=== PATIENT | female | born 1950 ===

== ENCOUNTER 2017-04-16 08:17 | Emergency (ER) | payer BC, OTHER ==
[~2017-04-16] VITALS: Ht 162.6 cm; Wt 80.0 kg
[2017-04-16 08:23] VITALS: BP 96/65; PULSE 72; RESP 16; TEMP 97.7; O2SAT 100
[2017-04-16] MEDS ORDERED: METF500T PO (08:30)
[2017-04-16] MEDS ORDERED: ATOR40TA16 PO (08:30)
--- NOTE | 2017-04-16 08:35 | PD ---
HPI Chief Complaint: Cardiac Complaint Time Seen by Provider: 08:31 Travel History International Travel<30 days: No Contact w/Intl Traveler<30days: No Traveled to known affect area: No History of Present Illness HPI This 66-year-old female says that she started feeling lightheaded around 7 AM this morning. She had palpitations and felt a little bit of indigestion. She has not had symptoms like this before. She checked her heart rate and was quite fast. She has no history of heart disease. She is on metformin and atorvastatin. Her father of a heart attack as did her younger brother. She went for a stress test about 2 years ago and it was normal. She does not smoke, has occasional alcohol. She does not get exertional chest pain or shortness of breath. PFSH Past Medical History Hx Anticoagulant Therapy: No Cardiovascular Problems: Yes (CHOL) High Cholesterol: Yes Diabetes: Yes Patient Takes Glucophage: Yes Diminished Hearing: No Tetanus Vaccination: Unknown ?: Not Past Surgical History Surgical History: No Previous Surgery Social History Alcohol Use: Yes (SOC) Tobacco Use: No Substance Use: No Allergies-Medications (Allergen,Severity, Reaction): Coded Allergies: No Known Allergies (Unverified , 04/16/17) Reported Meds & Prescriptions Reported Meds & Active Scripts Active Reported Atorvastatin (Atorvastatin Calcium) 40 Mg Tab 40 Mg PO HS Metformin (Metformin HCl) 500 Mg Tab 500 Mg PO BIDPC Review of Systems General / Constitutional: No: Fever, Chills Eyes: No: Diploplia, Blurred Vision HENT: Positive: Lightheadedness, No: Headaches Cardiovascular: Positive: Chest Pain or Discomfort, Tachycardia Respiratory: No: Shortness of Breath, Wheezing Gastrointestinal: Positive: Nausea Genitourinary: No: Urgency, Frequency Musculoskeletal: No: Myalgias, Arthralgias Skin: No Rash, No Itching Neurologic: Positive: Dizziness Psychiatric: No: Depression Endocrine: No: Heat Intolerance, Cold Intolerance Hematologic/Lymphatic: No: Easy Bruising Physical Exam Narrative GENERAL: Well-developed female SKIN: Focused skin assessment warm/dry. HEAD: Atraumatic. Normocephalic. EYES: Pupils equal and round. No scleral icterus. No injection or drainage. ENT: No nasal bleeding or discharge. Mucous membranes pink and moist. NECK: Trachea midline. No JVD. CARDIOVASCULAR: Rapid Regular rate and rhythm. No murmur appreciated. RESPIRATORY: No accessory muscle use. Clear to auscultation. Breath sounds equal bilaterally. GASTROINTESTINAL: Abdomen soft, non-tender, nondistended. Hepatic and splenic margins not palpable. MUSCULOSKELETAL: No obvious deformities. No clubbing. No cyanosis. No edema. NEUROLOGICAL: Awake and alert. No obvious cranial nerve deficits. Motor grossly within normal limits. Normal speech. PSYCHIATRIC: Appropriate mood and affect; insight and judgment normal. Data Data Last Documented VS Vital Signs Date Time Temp Pulse Resp B/P (MAP) Pulse Ox O2 Delivery O2 Flow Rate FiO2 04/16/17 08:48 78 16 110/67 (81) 95 Room Air 04/16/17 08:23 97.7 Orders Orders Complete Blood Count With Diff (04/16/17 08:29) Basic Metabolic Panel (Bmp) (04/16/17 08:29) Troponin I (04/16/17 08:29) Magnesium (Mg) (04/16/17 08:29) Thyroid Stimulating Hormone (04/16/17 08:29) Chest, Single Ap (04/16/17 08:29) Labs Laboratory Tests Test 04/16/17 08:30 White Blood Count 7.3 TH/MM3 Red Blood Count 4.84 MIL/MM3 Hemoglobin 14.5 GM/DL Hematocrit 43.5 % Mean Corpuscular Volume 89.8 FL Mean Corpuscular Hemoglobin 29.9 PG Mean Corpuscular Hemoglobin Concent 33.4 % Red Cell Distribution Width 12.2 % Platelet Count 240 TH/MM3 Mean Platelet Volume 9.8 FL Neutrophils (%) (Auto) 62.9 % Lymphocytes (%) (Auto) 22.8 % Monocytes (%) (Auto) 8.0 % Eosinophils (%) (Auto) 1.9 % Basophils (%) (Auto) 4.4 % Neutrophils # (Auto) 4.6 TH/MM3 Lymphocytes # (Auto) 1.7 TH/MM3 Monocytes # (Auto) 0.6 TH/MM3 Eosinophils # (Auto) 0.1 TH/MM3 Basophils # (Auto) 0.3 TH/MM3 CBC Comment DIFF FINAL Differential Comment Blood Urea Nitrogen 15 MG/DL Creatinine 0.91 MG/DL Random Glucose 205 MG/DL Calcium Level 9.1 MG/DL Magnesium Level 2.0 MG/DL Sodium Level 136 MEQ/L Potassium Level 3.7 MEQ/L Chloride Level 105 MEQ/L Carbon Dioxide Level 22.7 MEQ/L Anion Gap 8 MEQ/L Estimat Glomerular Filtration Rate 62 ML/MIN Troponin I LESS THAN 0.02 NG/ML Thyroid Stimulating Hormone 3rd Gen 1.800 uIU/ML MDM Medical Decision Making Medical Screen Exam Complete: Yes Emergency Medical Condition: Yes Medical Record Reviewed: Yes Differential Diagnosis Differential includes SVT, atrial fibrillation, V. 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 Valsalva maneuver was performed and the patient converted to a sinus rhythm. Hemoglobin is 14.5 and white count of 7.3. Blood sugar is 205. Troponin is less than 0.02. TSH is normal. Chest x-ray negative. Diagnosis Primary Impression: Supraventricular tachycardia Departure Forms: Tests/Procedures, Work Release Enter return to work date: Apr 17, 2017 Additional Instructions: Return as needed Disposition: 01 DISCHARGE HOME Condition: Stable Rolly Austin MD Apr 16, 2017 08:35
[2017-04-16 08:39] LABS: AUTOMATED NEUTROPHIL # 4.6 TH/MM3 (1.8-7.7); BASOPHIL # 0.3 TH/MM3 (0-0.2); BASOPHIL % 4.4 % (0.0-2.0); EOSINOPHIL # 0.1 TH/MM3 (0-0.4); EOSINOPHIL % 1.9 % (0.0-4.0); HEMATOCRIT 43.5 % (35.0-46.0); HEMOGLOBIN 14.5 GM/DL (11.6-15.3); LYMPH % 22.8 % (9.0-44.0); LYMPHOCYTE # 1.7 TH/MM3 (1.0-4.8); MEAN CELL VOLUME 89.8 FL (80.0-100.0); MEAN CORPUSCULAR HEMOGLOBIN 29.9 PG (27.0-34.0); MEAN CORPUSCULAR HGB CONC 33.4 % (32.0-36.0); MEAN PLATELET VOLUME 9.8 FL (7.0-11.0); MONOCYTE # 0.6 TH/MM3 (0-0.9); NEUT % 62.9 % (16.0-70.0); PLATELET COUNT 240 TH/MM3 (150-450); RED BLOOD COUNT 4.84 MIL/MM3 (4.00-5.30); RED CELL DISTRIBUTION WIDTH 12.2 % (11.6-17.2); WHITE BLOOD COUNT 7.3 TH/MM3 (4.0-11.0)
[2017-04-16 08:48] VITALS: BP 110/67; PULSE 78; RESP 16; O2SAT 95
[2017-04-16 08:52] LABS: CHLORIDE 105 MEQ/L (98-107); SODIUM (NA) 136 MEQ/L (136-145)
[2017-04-16 08:54] LABS: CALCIUM 9.1 MG/DL (8.5-10.1)
[2017-04-16 08:55] LABS: BICARBONATE 22.7 MEQ/L (21.0-32.0); BLOOD UREA NITROGEN 15 MG/DL (7-18); GLUCOSE,RANDOM 205 MG/DL (74-106)
[2017-04-16 08:58] LABS: CREATININE 0.91 MG/DL (0.50-1.00); GLOMERULAR FILTRATION RATE 62 ML/MIN (>89)
[2017-04-16 09:03] LABS: TROPONIN I LESS THAN 0.02 NG/ML (0.02-0.05)
[2017-04-16 09:46] VITALS: BP 109/67
--- NOTE | 2017-04-16 10:02 | RADRPT ---
EXAM DATE/TIME: 04/16/2017 08:51 [facility] COMPARISON: No previous studies available for comparison. INDICATIONS : Short of Breath MEDICAL HISTORY : Vertigo SURGICAL HISTORY : None. ENCOUNTER: Initial ACUITY: 1 day PAIN SCORE: 0/10 LOCATION: chest FINDINGS: A single view of the chest demonstrates the lungs to be symmetrically aerated without evidence of mas s, infiltrate or effusion. The cardiomediastinal contours are unremarkable. Osseous structures are intact. CONCLUSION: No acute disease. Cristino Rod MD FACR on April 16, 2017 at 10:00 Board Certified Radiologist. This report was verified electronically.
--- NOTE | 2017-04-16 21:59 | EKG ---
Date Performed: 04/16/2017 Time Performed: 08:22:44 PTAGE: 66 years EKG: Sinus rhythm WITH OCCASIONAL SUPRAVENTRICULAR PREMATURE COMPLEXES BORDERLINE ECG INTERPRETATION BASED ON A DEFAUL T AGE OF 40 YEARS NO PREVIOUS TRACING DOCTOR: Jp Mccloud Interpretating Date/Time 04/16/2017 21:56:38
== END 2017-04-16 09:53 | disposition home or self-care (01) ==
LOC: PHED 08:17
DX: I47.1 Supraventricular tachycardia (principal); E78.00 Pure hypercholesterolemia, unspecified; E11.9 Type 2 diabetes mellitus without complications; Z82.49 Family history of ischemic heart disease and other diseases of the circulatory system; Z79.84 Long term (current) use of oral hypoglycemic drugs
CPT/HCPCS: 71045; 80048; 83735; 84443; 84484; 85025; 93005; 99285